=== PATIENT | female | born 1990 | race Caucasian/White ===

== ENCOUNTER 2025-01-30 04:38 | Emergency (ER) | payer OTHER, SELFPAY ==
[2025-01-30 04:41] VITALS: BP 107/79; PULSE 77; RESP 18; TEMP 36.7; O2SAT 100; BMI 20.2
[2025-01-30 05:01] LABS: Hematocrit 37.4 % (37-47); Hemoglobin 12.5 g/dL (12.0-15.0); Immature Granulocytes Count 0.020 X10^3/uL (0.0-0.0); Mean Corp Hgb Conc 33.4 g/dL (32-36); Mean Corpuscular Volume 94.4 fL (81-99); Mean Platelet Vol. 11.0 fl (6.2-12.0); NRBC Flagged by Analyzer 0 % (0-5); Platelet Count 216 K/mm3 (150-450); RBC Distribution Width CV 11.6 % (11.6-14.6); RBC Distribution Width SD 40.4 fl (35.1-43.9); Red Blood Count 3.96 M/mm3 (4.2-5.4); White Blood Count 7.7 K/mm3 (4.4-11.0)
[2025-01-30 05:03] LABS: Red Blood Cells-Urine 0 SEEN /hpf (0-5)
[2025-01-30 05:09] LABS: Color, Urine Yellow (Yellow); Glucose, Dipstick Normal (Normal); Ketone-Dipstick Negative (Negative); Leukocyte Esterase-Dipstick Negative /ul (Negative); Nitrite-Dipstick Negative (Negative); Occult Blood-Urine Negative /ul (Negative); Protein-Dipstick 15 mg/dl (Negative); Specific Gravity, Urine 1.025 (1.002-1.030); Urine Bilirubin Dipstick Negative (Negative)
--- NOTE | 2025-01-30 05:09 | EDS_ITS ---
HPI HPI - GI History of Present Illness Chief Complaint: Abd Pain Informant: patient, spouse/S.O. and EMS Narrative Narrative: Patient complaining of severe abdominal pain that started this past evening, more upper than lower, wrapping around to her back, without any nausea, vomiting, diarrhea, urinary symptoms, chest discomfort, or other acute symptoms. She states it improved but then it came back in the middle of the night more severe, she states it was very bad. Initially felt like cramping. They called 911 because they did not know what else to do, paulie gave her Toradol on the way here and she states the symptoms are completely resolved now. She has never had this before, at least nothing this bad. No history of any abdominal surgeries. PFSH PFSH Medical History no medical history no medical history Home Medications ?Medication ?Instructions ?Recorded ?Last Taken ?Type NK 01/30/25 Unknown History Allergy/AdvReac Type Severity Reaction Status Date / Time acetaminophen (From Tylenol) AdvReac Other Verified 01/30/25 04:41 ibuprofen AdvReac Other Verified 01/30/25 04:41 Family History no significant family his Surgical History no surgical history no surgical history Social History (Updated 01/30/25 @ 05:[address] Maksim Sargent MD) Smoking Status: Never smoker alcohol intake: never ROS ROS ED Constitutional Constitutional ED: Denies chills or fever(s) Eyes Eyes: Denies change in vision or diplopia ENT ENT ED: Denies rhinorrhea or sore throat Cardiovascular Cardiovascular: Denies chest pain or palpitations Respiratory/Chest Respiratory/Chest: Denies cough or dyspnea Gastrointestinal Gastrointestinal: Reports abdominal pain; Denies diarrhea, nausea or vomiting Genitourinary Genitourinary ED: Denies dysuria or hematuria Musculoskeletal Musculoskeletal: Denies back pain or neck pain Integumentary Denies abscess or rash Neurologic Neurologic: Denies headache(s), paresthesias or weakness Psychiatric Psychiatric: Denies anxiety or suicidal thoughts EXAM Physical Exam Const Vital Signs: 01/30/25 04:41 01/30/25 06:00 Temperature 98.0 F Temperature Source Oral Pulse Rate 77 74 Respiratory Rate 18 18 Blood Pressure 107/79 109/59 L Blood Pressure Mean 88 75 Pulse Ox 100 100 Oxygen Delivery Method Room Air Room Air Positive well nourished and well developed General Appearance ED: well developed and NAD HEENT Reports moist mucous membranes normocephalic and atraumatic Eyes PERRL and EOMs intact bilaterally Neck full ROM and supple Resp normal respiratory effort and clear to auscultation bilaterally Cardio regular rate, regular rhythm and no murmurs GI non-tender and non-distended Auscultation: normoactive bowel sounds Palpation: soft Back/Spine no CVA tenderness General Back: other FROM Extremity normal to inspection General Extremety ED: Negative for edema, pulses abnormal or tenderness General Extremity: Negative for edema or pulses abnormal Neuro oriented x3, CN's II-XII intact bilaterally and no sensory deficits noted Sensorium / Orientation: awake and alert Motor Exam: strength 5/5 throughout Skin no rashes or lesions noted and no wounds MDM MDM MDM Narrative Medical decision making narrative: Patient is asymptomatic with normal vital signs and I am not able to reproduce any abdominal discomfort with deep palpation/exam which is very benign. Her lungs are clear and her pulse ox is at 100% on room air and she has no symptoms of pneumonia. I did a quick bedside sonogram since the patient presents during my shift when hospital ultrasound department is not open, and ultrasound of the gallbladder. I see no stones, her gallbladder is distended with a grossly normal wall, and palpating directly over the gallbladder yields no pain or tenderness. I also viewed the right kidney which is also nontender and there is no hydronephrosis on ultrasound. I ran labs. negative ruling out ectopic. Blood counts normal, lipase negative ruling out acute pancreatitis, urinalysis shows no blood or signs of infection ruling out for the most part stones and pyelonephritis, but my concern is that this was biliary colic because her pain was in a bandlike distribution in her upper abdomen and she was really in severe pain before coming here. Her total bilirubin is slightly abnormal, her other liver enzymes are normal. I do not have any prior labs on her to compare. My concern is that I am not able to rule out possibility of a biliary obstruction. Ultrasound not available right now some sending her for a CT with IV contrast. I reevaluated her and she is having some mild upper abdominal cramping but not in severe pain and declines other analgesics at this time; the pain improved rather than worsened on reexamination later. I reviewed her CT scan imaging as well as the result which I agree with, it is showing possibly some mild periportal edema which is nonspecific, but no obvious other acute pathology or colitis or anything else in the lower abdomen. I discussed with Dr. Chang with GI, he advises now that the patient has been here for couple hours and it is Thursday morning and ultrasound is available to go forward with an ultrasound for further evaluation. Certainly Gilbert's syndrome and nonbiliary related pain is in the differential but we have no old values on her. I discussed all this with the patient and her , she is doing well right now, we will continue to monitor her and get ultrasound, checked out to oncoming ED physician at shift change. Lab Data Attestation: I reviewed the patient's lab results. Labs: Laboratory Results - last 24 hr 01/30/25 01/30/25 04:52 04:59 WBC 7.7 RBC 3.96 L Hgb 12.5 Hct 37.4 MCV 94.4 MCH 31.6 MCHC 33.4 RDW Std Deviation 40.4 RDW Coeff of Zenaida 11.6 Plt Count 216 MPV 11.0 Immature Gran % (Auto) 0.300 Neut % (Auto) 41.0 L Lymph % (Auto) 46.9 H [place] % (Auto) 9.4 Eos % (Auto) 1.7 Baso % (Auto) 0.7 Absolute Neuts (auto) 3.2 Absolute Lymphs (auto) 3.60 Nucleated RBC % 0 Sodium 139 Potassium 3.5 Chloride 102 Carbon Dioxide 26.7 Anion Gap 11 BUN 17 Creatinine 0.62 L Estim Creat Clear Calc 109.31 Est GFR (MDRD) Non-Af 118 BUN/Creatinine Ratio 27.9 H Glucose 154 H Calcium 9.2 Total Bilirubin 1.39 H AST 25 ALT 16 Alkaline Phosphatase 46 Total Protein 7.0 Albumin 4.3 Globulin 2.7 Albumin/Globulin Ratio 1.6 Lipase 35 Serum , Qual NEGATIVE Urine Color Yellow Urine Clarity Clear Urine pH 6.0 Ur Specific [place] 1.025 Urine Protein 15 H Urine Glucose (UA) Normal Urine Ketones Negative Urine Occult Blood Negative Urine Nitrite Negative Urine Bilirubin Negative Urine Urobilinogen Normal Ur Leukocyte Esterase Negative Urine RBC 0 SEEN Urine WBC 0-5 SEEN Ur Squamous Epith Cells 0-5 SEEN Ur Transition Epith Cell 0-5 SEEN Amorphous Sediment 1+ Urine Bacteria 2+ Urine Mucus 2+ Radiography Diagnostic Testing: Clinical Impression(s) from Imaging Studies Abdomen/Pelvis CT 01/30/25 05:37 IMPRESSION: Decreased density in the periportal region is noted, which can indicate periportal edema. The differential includes acute hepatitis, CHF, and secondary congestion. Reading Location: [facility] Management Discussion w/another healthcare provider: Online Content Coordinator (JEIMY Chang) Discharge Plan Triage Chief Complaint: Abd Pain ED Provider: Maksim Sargent Dx/Rx/DC Orders Clinical Impression: Acute upper abdominal pain Prescriptions: No Action NK Primary Care Provider: DULCE CHAN Referrals: Care Physician,No Primary [Non-Staff] - Print Language: [place]
[2025-01-30 05:15] LABS: Squamous Epithelial Cells - UA 0-5 SEEN /hpf (5-10); Transitional Epithelial - Ur 0-5 SEEN /hpf (0-5)
[2025-01-30 05:16] LABS: Mucous, Urine 2+ /hpf (<or=2+)
[2025-01-30 05:16] LABS: Internal QC Validated? YES +Cl - CLEAR BKGD; Pregnancy, Serum, hCG Quali. NEGATIVE Negative; Record Kit Lot#, Serum Preg. 0000962302
--- OUTSIDE RECORDS SUMMARY | 2025-01-30 05:24 | XMS RPT_ITS | CCD ---
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 Name Role Phone FANY DEE, DR MEHDI Garcia Primary Care Physician Allergies Allergy Classification Reported Allergen(s) Allergy Type Date of Onset Reaction(s) Facility (2 sources) Neomycin; Translations: [neomycin topical] Drug Allergy [facility] Medications Current Medications Medication Drug Class(es) Dates Sig (Normalized) Sig (Original) ibuprofen 600 mg oral tablet (2 sources) Nonsteroidal Anti-inflammatory Drug Start: 11-28-2017 Motrin Dose : 600 mg = 1 tab(s), Oral, q6h, PRN uterine cramping, 0 Refill(s) Start Date: 11/28/17 Status: Ordered 1 (2 sources) Start: 10-05-2014 take 1 capsule by mouth once daily 1 Dose = 1 cap(s), Oral, qDay, 0 Refill(s) Start Date: 10/05/14 Status: Ordered Problems Problem Classification Problem Date Documented Date Episodic/Chronic Diabetes or abnormal glucose tolerance complicating ; childbirth; or the puerperium (3 sources) Gestational diabetes mellitus complicating ; Translations: [Gestational diabetes mellitus in , insulin controlled] Onset: 05-09-2021 Episodic Other diseases of veins and lymphatics (1 source) Vulval varices; Translations: [Vulval varices] Onset: 05-09-2021 Episodic Other and delivery including normal (1 source) Delivery normal; Translations: [Encounter for full-term uncomplicated delivery] Onset: 05-10-2021 Episodic Unclassified (2 sources) Breast feeding () (observable entity) 06-19-2016 Comment on above: System added from do cumentation. Breast feeding Status documented as Yes on Admission Unclassified (2 sources) None (qualifier value) 12-31-2013 Unclassified (2 sources) 10-05-2014 Varicose veins of lower extremity (1 source) Varicose veins of lower extremity; Translations: [Asymptomatic varicose veins of bilateral lower extremities] Onset: 05-09-2021 Episodic Results Test Name Value Interpretation Reference Range Facility [facility] 05-10-2021 Hematocrit (Bld) [Volume fraction] 32.6 % Low 37.0-47.0 [facility] ([place]) Comment on above: Performed By: #### C BC, ADIFF, ANEU, HBSAG, TSH, FT4, HIV, PABOGEL, PABSGEL, RUBIS, RPR, VARIS #### [place] [address] Hgb 11.3 G/dL Low 12.0-16.0 [facility] ([place]) Comment on above: Performed By: #### C BC, ADIFF, ANEU, HBSAG, TSH, FT4, HIV, PABOGEL, PABSGEL, RUBIS, RPR, VARIS #### [place] [address] LABORATORYOrdered By: Galina Rodriguez on 05-10-2021 Hematocrit (Bld) [Volume fraction] 32.6 % Invalid Interpretation Code 37.0 - 47.0 % AO Auto Heme SS Hemoglobin (Bld) [Mass/Vol] 11.3 G/dL Invalid Interpretation Code 12.0 - 16.0 G/dL AO Auto Heme SS .Auto Diffon 05-09-2021 Basophil, Absolute 0.00 10 3/mcL Normal 0.00-0.19 Count includes the [facility] ([place]) Comment on above: Performed By: #### C BC, ADIFF, ANEU, HBSAG, TSH, FT4, HIV, PABOGEL, PABSGEL, RUBIS, RPR, VARIS #### [place] [id number] Basophils/100 WBC (Bld) 0.4 % Normal 0.0-2.5 [facility] ([place]) Comment on above: Performed By: #### C BC, ADIFF, ANEU, HBSAG, TSH, FT4, HIV, PABOGEL, PABSGEL, RUBIS, RPR, VARIS #### [address] [address] Eosinophil, Absolute 0.00 10 3/mcL Normal 0.00-0.40 [facility] ([place]) Comment on above: Performed By: #### C BC, ADIFF, ANEU, HBSAG, TSH, FT4, HIV, PABOGEL, PABSGEL, RUBIS, RPR, VARIS #### [address] [address] Eosinophils/100 WBC (Bld) 0.5 % Normal 0.0-7.0 [facility] ([place]) Comment on above: Performed By: #### C BC, ADIFF, ANEU, HBSAG, TSH, FT4, HIV, PABOGEL, PABSGEL, RUBIS, RPR, VARIS #### [address] [address] Lymphocyte, Absolute 1.00 10 3/mcL Normal 0.77-3.85 [facility] ([place]) Comment on above: Performed By: #### C BC, ADIFF, ANEU, HBSAG, TSH, FT4, HIV, PABOGEL, PABSGEL, RUBIS, RPR, VARIS #### [address] [address] Lymphocytes/100 WBC (Bld) 19.4 % Normal 10.0-50.0 [facility] ([place]) Comment on above: Performed By: #### C BC, ADIFF, ANEU, HBSAG, TSH, FT4, HIV, PABOGEL, PABSGEL, RUBIS, RPR, VARIS #### [address] [address] Monocyte, Absolute 0.50 10 3/mcL Normal 0.15-1.00 Count includes the [facility] ([place]) Comment on above: Performed By: #### C BC, ADIFF, ANEU, HBSAG, TSH, FT4, HIV, PABOGEL, PABSGEL, RUBIS, RPR, VARIS #### [address] [address] Monocytes/100 WBC (Bld) 8.9 % Normal 1.7-13.0 [facility] ([place]) Comment on above: Performed By: #### C BC, ADIFF, ANEU, HBSAG, TSH, FT4, HIV, PABOGEL, PABSGEL, RUBIS, RPR, VARIS #### [address] [address] Neutrophils/100 WBC (Bld) 70.8 % Normal 37.0-80.0 [facility] ([place]) Comment on above: Performed By: #### C BC, ADIFF, ANEU, HBSAG, TSH, FT4, HIV, PABOGEL, PABSGEL, RUBIS, RPR, VARIS #### [address] [address] .NEUABSon 05-09-2021 Neutrophil, Absolute 3.60 10 3/mcL Normal 2.85-6.16 [facility] ([place]) Comment on above: Performed By: #### C BC, ADIFF, ANEU, HBSAG, TSH, FT4, HIV, PABOGEL, PABSGEL, RUBIS, RPR, VARIS #### [place] [id number] CBCon 05-09-2021 Erythrocyte distribution width (RBC) [Ratio] 13.1 % Normal 11.5-14.5 [facility] ([place]) Comment on above: Performed By: #### C BC, ADIFF, ANEU, HBSAG, TSH, FT4, HIV, PABOGEL, PABSGEL, RUBIS, RPR, VARIS #### [place] [id number] Hematocrit (Bld) [Volume fraction] 34.5 % Low 37.0-47.0 [facility] ([place]) Comment on above: Performed By: #### C BC, ADIFF, ANEU, HBSAG, TSH, FT4, HIV, PABOGEL, PABSGEL, RUBIS, RPR, VARIS #### [place] [id number] Hgb 11.9 G/dL Low 12.0-16.0 [facility] ([place]) Comment on above: Performed By: #### C BC, ADIFF, ANEU, HBSAG, TSH, FT4, HIV, PABOGEL, PABSGEL, RUBIS, RPR, VARIS #### [address] [address] MCH (RBC) [Entitic mass] 34.3 pg High 27.0-31.2 [facility] ([place]) Comment on above: Performed By: #### C BC, ADIFF, ANEU, HBSAG, TSH, FT4, HIV, PABOGEL, PABSGEL, RUBIS, RPR, VARIS #### [place] [address] MCHC 34.6 G/dL Normal 33.0-37.0 [facility] ([place]) Comment on above: Performed By: #### C BC, ADIFF, ANEU, HBSAG, TSH, FT4, HIV, PABOGEL, PABSGEL, RUBIS, RPR, VARIS #### [place] [address] MCV (RBC) [Entitic vol] 99.0 fL High 80.0-94.0 [facility] ([place]) Comment on above: Performed By: #### C BC, ADIFF, ANEU, HBSAG, TSH, FT4, HIV, PABOGEL, PABSGEL, RUBIS, RPR, VARIS #### [place] [address] Platelet 144 10 3/mcL Normal 130-400 [facility] ([place]) Comment on above: Performed By: #### C BC, ADIFF, ANEU, HBSAG, TSH, FT4, HIV, PABOGEL, PABSGEL, RUBIS, RPR, VARIS #### [place] [address] Platelet mean volume (Bld) [Entitic vol] 9.5 fL Normal 7.4-10.4 [facility] ([place]) Comment on above: Performed By: #### C BC, ADIFF, ANEU, HBSAG, TSH, FT4, HIV, PABOGEL, PABSGEL, RUBIS, RPR, VARIS #### [place] [address] RBC 3.48 10 6/mcL Low 4.20-5.40 [facility] ([place]) Comment on above: Performed By: #### C BC, ADIFF, ANEU, HBSAG, TSH, FT4, HIV, PABOGEL, PABSGEL, RUBIS, RPR, VARIS #### [address] [address] WBC 5.00 10 3/mcL Normal 4.60-10.80 [facility] ([place]) Comment on above: Performed By: #### C BC, ADIFF, ANEU, HBSAG, TSH, FT4, HIV, PABOGEL, PABSGEL, RUBIS, RPR, VARIS #### [address] [address] Gel ABOon 05-09-2021 ABO/Rh Interp Positive Invalid Interpretation Code [facility] ([place]) Comment on above: Performed By: #### C BC, ADIFF, ANEU, HBSAG, TSH, FT4, HIV, PABOGEL, PABSGEL, RUBIS, RPR, VARIS #### [place] [id number] Gel ABSon 05-09-2021 Antibody Screen Gel Negative Normal [facility] ([place]) Comment on above: Performed By: #### C BC, ADIFF, ANEU, HBSAG, TSH, FT4, HIV, PABOGEL, PABSGEL, RUBIS, RPR, VARIS #### [address] [address] LABORATORYOrdered By: Estefanía Aj on 05-09-2021 ABO/Rh Interp Positive Invalid Interpretation Code AO BB SS Antibody Screen Gel Negative [facility]SC (05/09/21 7:20 AM) Invalid Interpretation Code AO BB SS Basophil, Absolute 0.00 103/mcL Invalid Interpretation Code 0.00 - 0.19 10^3/mcL AO Auto Heme SS Basophils/100 WBC (Bld) 0.4 % Invalid Interpretation Code 0.0 - 2.5 % AO Auto Heme SS Eosinophil, Absolute 0.00 103/mcL Invalid Interpretation Code 0.00 - 0.40 10^3/mcL AO Auto Heme SS Eosinophils/100 WBC (Bld) 0.5 % Invalid Interpretation Code 0.0 - 7.0 % AO Auto Heme SS Erythrocyte distribution width (RBC) [Ratio] 13.1 % Invalid Interpretation Code 11.5 - 14.5 % AO Auto Heme SS Hematocrit (Bld) [Volume fraction] 34.5 % Invalid Interpretation Code 37.0 - 47.0 % AO Auto Heme SS Hemoglobin (Bld) [Mass/Vol] 11.9 G/dL Invalid Interpretation Code 12.0 - 16.0 G/dL AO Auto Heme SS Lymphocyte, Absolute 1.00 103/mcL Invalid Interpretation Code 0.77 - 3.85 10^3/mcL AO Auto Heme SS Lymphocytes/100 WBC (Bld) 19.4 % Invalid Interpretation Code 10.0 - 50.0 % AO Auto Heme SS MCH (RBC) [Entitic mass] 34.3 pg Invalid Interpretation Code 27.0 - 31.2 pg AO Auto Heme SS MCHC (RBC) [Mass/Vol] 34.6 G/dL Invalid Interpretation Code 33.0 - 37.0 G/dL AO Auto Heme SS MCV (RBC) [Entitic vol] 99.0 fL Invalid Interpretation Code 80.0 - 94.0 fL AO Auto Heme SS Monocyte, Absolute 0.50 103/mcL Invalid Interpretation Code 0.15 - 1.00 10^3/mcL AO Auto Heme SS Monocytes/100 WBC (Bld) 8.9 % Invalid Interpretation Code 1.7 - 13.0 % AO Auto Heme SS Neutrophil, Absolute 3.60 103/mcL Invalid Interpretation Code 2.85 - 6.16 10^3/mcL AO Auto Heme SS Neutrophils/100 WBC (Bld) 70.8 % Invalid Interpretation Code 37.0 - 80.0 % AO Auto Heme SS Platelet mean volume (Bld) [Entitic vol] 9.5 fL Invalid Interpretation Code 7.4 - 10.4 fL AO Auto Heme SS Platelets (Bld) [#/Vol] 144 103/mcL Invalid Interpretation Code 130 - 400 10^3/mcL AO Auto Heme SS RBC (Bld) [#/Vol] 3.48 106/mcL Invalid Interpretation Code 4.20 - 5.40 10^6/mcL AO Auto Heme SS WBC (Bld) [#/Vol] 5.00 103/mcL Invalid Interpretation Code 4.60 - 10.80 10^3/mcL AO Auto Heme SS .Auto Diffon 04-11-2021 Basophil, Absolute 0.00 10 3/mcL Normal 0.00-0.27 [facility] ([place]) Comment on above: Performed By: #### C BC, ADIFF, ANEU, HBSAG, TSH, FT4, HIV, PABOGEL, PABSGEL, RUBIS, RPR, VARIS #### [address] [address] Basophils/100 WBC (Bld) 0.6 % Normal 0.0-2.5 [facility] ([place]) Comment on above: Performed By: #### C BC, ADIFF, ANEU, HBSAG, TSH, FT4, HIV, PABOGEL, PABSGEL, RUBIS, RPR, VARIS #### [address] [address] Eosinophil, Absolute 0.10 10 3/mcL Normal 0.00-0.65 [facility] ([place]) Comment on above: Performed By: #### C BC, ADIFF, ANEU, HBSAG, TSH, FT4, HIV, PABOGEL, PABSGEL, RUBIS, RPR, VARIS #### [address] [address] Eosinophils/100 WBC (Bld) 1.4 % Normal 0.0-6.0 [facility] ([place]) Comment on above: Performed By: #### C BC, ADIFF, ANEU, HBSAG, TSH, FT4, HIV, PABOGEL, PABSGEL, RUBIS, RPR, VARIS #### [address] [address] Lymphocyte, Absolute 1.00 10 3/mcL Normal 0.90-4.32 [facility] ([place]) Comment on above: Performed By: #### C BC, ADIFF, ANEU, HBSAG, TSH, FT4, HIV, PABOGEL, PABSGEL, RUBIS, RPR, VARIS #### [address] [address] Lymphocytes/100 WBC (Bld) 19.4 % Low 20.0-40.0 [facility] ([place]) Comment on above: Performed By: #### C BC, ADIFF, ANEU, HBSAG, TSH, FT4, HIV, PABOGEL, PABSGEL, RUBIS, RPR, VARIS #### [address] [address] Monocyte, Absolute 0.50 10 3/mcL Normal 0.09-1.40 Count includes the [facility] ([place]) Comment on above: Performed By: #### C BC, ADIFF, ANEU, HBSAG, TSH, FT4, HIV, PABOGEL, PABSGEL, RUBIS, RPR, VARIS #### [address] [address] Monocytes/100 WBC (Bld) 9.6 % Normal 2.0-13.0 [facility] ([place]) Comment on above: Performed By: #### C BC, ADIFF, ANEU, HBSAG, TSH, FT4, HIV, PABOGEL, PABSGEL, RUBIS, RPR, VARIS #### [address] [address] Neutrophils/100 WBC (Bld) 69.0 % Normal 50.0-75.0 [facility] ([place]) Comment on above: Performed By: #### C BC, ADIFF, ANEU, HBSAG, TSH, FT4, HIV, PABOGEL, PABSGEL, RUBIS, RPR, VARIS #### [address] [address] .NEUABSon 04-11-2021 Neutrophil, Absolute 3.40 10 3/mcL Normal 2.25-8.10 [facility] ([place]) Comment on above: Performed By: #### C BC, ADIFF, ANEU, HBSAG, TSH, FT4, HIV, PABOGEL, PABSGEL, RUBIS, RPR, VARIS #### [address] [address] CBCon 04-11-2021 Erythrocyte distribution width (RBC) [Ratio] 12.9 % Normal 11.5-15.5 [facility] ([place]) Comment on above: Performed By: #### C BC, ADIFF, ANEU, HBSAG, TSH, FT4, HIV, PABOGEL, PABSGEL, RUBIS, RPR, VARIS #### [address] [address] Hematocrit (Bld) [Volume fraction] 32.9 % Low 34.0-46.0 [facility] ([place]) Comment on above: Performed By: #### C BC, ADIFF, ANEU, HBSAG, TSH, FT4, HIV, PABOGEL, PABSGEL, RUBIS, RPR, VARIS #### [place] [id number] Hgb 11.1 G/dL Low 12.0-16.0 [facility] ([place]) Comment on above: Performed By: #### C BC, ADIFF, ANEU, HBSAG, TSH, FT4, HIV, PABOGEL, PABSGEL, RUBIS, RPR, VARIS #### [place] [address] MCH (RBC) [Entitic mass] 33.6 pg High 27.0-33.0 [facility] ([place]) Comment on above: Performed By: #### C BC, ADIFF, ANEU, HBSAG, TSH, FT4, HIV, PABOGEL, PABSGEL, RUBIS, RPR, VARIS #### [place] [id number] MCHC 33.6 G/dL Normal 32.0-36.0 [facility] ([place]) Comment on above: Performed By: #### C BC, ADIFF, ANEU, HBSAG, TSH, FT4, HIV, PABOGEL, PABSGEL, RUBIS, RPR, VARIS #### [place] [address] MCV (RBC) [Entitic vol] 100.1 fL High 80.0-99.0 [facility] ([place]) Comment on above: Performed By: #### C BC, ADIFF, ANEU, HBSAG, TSH, FT4, HIV, PABOGEL, PABSGEL, RUBIS, RPR, VARIS #### [place] [id number] Platelet 149 10 3/mcL Low 150-450 [facility] ([place]) Comment on above: Performed By: #### C BC, ADIFF, ANEU, HBSAG, TSH, FT4, HIV, PABOGEL, PABSGEL, RUBIS, RPR, VARIS #### [place] [id number] Platelet mean volume (Bld) [Entitic vol] 10.4 fL Normal 6.6-10.5 [facility] ([place]) Comment on above: Performed By: #### C BC, ADIFF, ANEU, HBSAG, TSH, FT4, HIV, PABOGEL, PABSGEL, RUBIS, RPR, VARIS #### [place] [id number] RBC 3.29 10 6/mcL Low 4.10-5.30 [facility] ([place]) Comment on above: Performed By: #### C BC, ADIFF, ANEU, HBSAG, TSH, FT4, HIV, PABOGEL, PABSGEL, RUBIS, RPR, VARIS #### [place] [id number] WBC 5.00 10 3/mcL Normal 4.50-10.80 [facility] ([place]) Comment on above: Performed By: #### C BC, ADIFF, ANEU, HBSAG, TSH, FT4, HIV, PABOGEL, PABSGEL, RUBIS, RPR, VARIS #### [address] [address] GL1on 03-05-2021 Glucose [Mass/Vol] 193 mg/dL High 70-139 [facility] ([place]) Comment on above: Performed By: #### C BC, ADIFF, ANEU, HBSAG, TSH, FT4, HIV, PABOGEL, PABSGEL, RUBIS, RPR, VARIS #### [place] [id number] GL2on 03-05-2021 Glucose [Mass/Vol] 200 mg/dL Normal [facility] ([place]) Comment on above: Performed By: #### C BC, ADIFF, ANEU, HBSAG, TSH, FT4, HIV, PABOGEL, PABSGEL, RUBIS, RPR, VARIS #### [address] [address] GL3on 03-05-2021 Glucose [Mass/Vol] 170 mg/dL Normal [facility] ([place]) Comment on above: Performed By: #### C BC, ADIFF, ANEU, HBSAG, TSH, FT4, HIV, PABOGEL, PABSGEL, RUBIS, RPR, VARIS #### [address] [address] GLFon 03-05-2021 Glucose [Mass/Vol] 74 mg/dL Normal 70-110 [facility] ([place]) Comment on above: Performed By: #### C BC, ADIFF, ANEU, HBSAG, TSH, FT4, HIV, PABOGEL, PABSGEL, RUBIS, RPR, VARIS #### [place] [address] .Auto Diffon 02-26-2021 Basophil, Absolute 0.00 10 3/mcL Normal 0.00-0.27 Count includes the [facility] ([place]) Comment on above: Performed By: #### C BC, ADIFF, ANEU, HBSAG, TSH, FT4, HIV, PABOGEL, PABSGEL, RUBIS, RPR, VARIS #### [place] [address] Basophils/100 WBC (Bld) 0.2 % Normal 0.0-2.5 [facility] ([place]) Comment on above: Performed By: #### C BC, ADIFF, ANEU, HBSAG, TSH, FT4, HIV, PABOGEL, PABSGEL, RUBIS, RPR, VARIS #### [place] [address] Eosinophil, Absolute 0.00 10 3/mcL Normal 0.00-0.65 [facility] ([place]) Comment on above: Performed By: #### C BC, ADIFF, ANEU, HBSAG, TSH, FT4, HIV, PABOGEL, PABSGEL, RUBIS, RPR, VARIS #### [address] [address] Eosinophils/100 WBC (Bld) 0.7 % Normal 0.0-6.0 [facility] ([place]) Comment on above: Performed By: #### C BC, ADIFF, ANEU, HBSAG, TSH, FT4, HIV, PABOGEL, PABSGEL, RUBIS, RPR, VARIS #### [facility] [address] [place], [place] [address] Lymphocyte, Absolute 1.10 10 3/mcL Normal 0.90-4.32 [facility] ([place]) Comment on above: Performed By: #### C BC, ADIFF, ANEU, HBSAG, TSH, FT4, HIV, PABOGEL, PABSGEL, RUBIS, RPR, VARIS #### [address] [address] Lymphocytes/100 WBC (Bld) 15.2 % Low 20.0-40.0 [facility] ([place]) Comment on above: Performed By: #### C BC, ADIFF, ANEU, HBSAG, TSH, FT4, HIV, PABOGEL, PABSGEL, RUBIS, RPR, VARIS #### [address] [address] Monocyte, Absolute 0.40 10 3/mcL Normal 0.09-1.40 Count includes the [facility] ([place]) Comment on above: Performed By: #### C BC, ADIFF, ANEU, HBSAG, TSH, FT4, HIV, PABOGEL, PABSGEL, RUBIS, RPR, VARIS #### [address] [address] Monocytes/100 WBC (Bld) 6.0 % Normal 2.0-13.0 [facility] ([place]) Comment on above: Performed By: #### C BC, ADIFF, ANEU, HBSAG, TSH, FT4, HIV, PABOGEL, PABSGEL, RUBIS, RPR, VARIS #### [address] [address] Neutrophils/100 WBC (Bld) 77.9 % High 50.0-75.0 [facility] ([place]) Comment on above: Performed By: #### C BC, ADIFF, ANEU, HBSAG, TSH, FT4, HIV, PABOGEL, PABSGEL, RUBIS, RPR, VARIS #### [address] [address] .NEUABSon 02-26-2021 Neutrophil, Absolute 5.40 10 3/mcL Normal 2.25-8.10 [facility] ([place]) Comment on above: Performed By: #### C BC, ADIFF, ANEU, HBSAG, TSH, FT4, HIV, PABOGEL, PABSGEL, RUBIS, RPR, VARIS #### [place] [id number] CBCon 02-26-2021 Erythrocyte distribution width (RBC) [Ratio] 13.1 % Normal 11.5-15.5 [facility] ([place]) Comment on above: Performed By: #### C BC, ADIFF, ANEU, HBSAG, TSH, FT4, HIV, PABOGEL, PABSGEL, RUBIS, RPR, VARIS #### [place] [address] Hematocrit (Bld) [Volume fraction] 31.6 % Low 34.0-46.0 [facility] ([place]) Comment on above: Performed By: #### C BC, ADIFF, ANEU, HBSAG, TSH, FT4, HIV, PABOGEL, PABSGEL, RUBIS, RPR, VARIS #### [place] [address] Hgb 11.0 G/dL Low 12.0-16.0 [facility] ([place]) Comment on above: Performed By: #### C BC, ADIFF, ANEU, HBSAG, TSH, FT4, HIV, PABOGEL, PABSGEL, RUBIS, RPR, VARIS #### [place] [address] MCH (RBC) [Entitic mass] 34.2 pg High 27.0-33.0 [facility] ([place]) Comment on above: Performed By: #### C BC, ADIFF, ANEU, HBSAG, TSH, FT4, HIV, PABOGEL, PABSGEL, RUBIS, RPR, VARIS #### [place] [address] MCHC 34.9 G/dL Normal 32.0-36.0 [facility] ([place]) Comment on above: Performed By: #### C BC, ADIFF, ANEU, HBSAG, TSH, FT4, HIV, PABOGEL, PABSGEL, RUBIS, RPR, VARIS #### [facility] [address] [place], [place] [address] MCV (RBC) [Entitic vol] 97.8 fL Normal 80.0-99.0 [facility] ([place]) Comment on above: Performed By: #### C BC, ADIFF, ANEU, HBSAG, TSH, FT4, HIV, PABOGEL, PABSGEL, RUBIS, RPR, VARIS #### [place] [id number] Platelet 178 10 3/mcL Normal 150-450 [facility] ([place]) Comment on above: Performed By: #### C BC, ADIFF, ANEU, HBSAG, TSH, FT4, HIV, PABOGEL, PABSGEL, RUBIS, RPR, VARIS #### [place] [id number] Platelet mean volume (Bld) [Entitic vol] 9.7 fL Normal 6.6-10.5 [facility] ([place]) Comment on above: Performed By: #### C BC, ADIFF, ANEU, HBSAG, TSH, FT4, HIV, PABOGEL, PABSGEL, RUBIS, RPR, VARIS #### [address] [address] RBC 3.23 10 6/mcL Low 4.10-5.30 [facility] ([place]) Comment on above: Performed By: #### C BC, ADIFF, ANEU, HBSAG, TSH, FT4, HIV, PABOGEL, PABSGEL, RUBIS, RPR, VARIS #### [place] [id number] WBC 6.90 10 3/mcL Normal 4.50-10.80 [facility] ([place]) Comment on above: Performed By: #### C BC, ADIFF, ANEU, HBSAG, TSH, FT4, HIV, PABOGEL, PABSGEL, RUBIS, RPR, VARIS #### [address] [address] [id number] 02-25-2021 Glucose [Mass/Vol] 169 mg/dL High 70-139 [facility] ([place]) Comment on above: Performed By: #### C BC, ADIFF, ANEU, HBSAG, TSH, FT4, HIV, PABOGEL, PABSGEL, RUBIS, RPR, VARIS #### [place] [id number] TSHon 02-25-2021 TSH 1.078 mIU/mL Normal 0.550-4.780 [facility] ([place]) Comment on above: Result Comment: No te - New Reference Range in effect 20 Performed By: #### C BC, ADIFF, ANEU, HBSAG, TSH, FT4, HIV, PABOGEL, PABSGEL, RUBIS, RPR, VARIS #### [place] [address] GL1on 11-22-2020 Glucose [Mass/Vol] 143 mg/dL High 70-139 [facility] ([place]) Comment on above: Performed By: #### C BC, ADIFF, ANEU, HBSAG, TSH, FT4, HIV, PABOGEL, PABSGEL, RUBIS, RPR, VARIS #### [place] [address] GL2on 11-22-2020 Glucose [Mass/Vol] 134 mg/dL Normal [facility] ([place]) Comment on above: Performed By: #### C BC, ADIFF, ANEU, HBSAG, TSH, FT4, HIV, PABOGEL, PABSGEL, RUBIS, RPR, VARIS #### [place] [address] GL3on 11-22-2020 Glucose [Mass/Vol] 107 mg/dL Normal [facility] ([place]) Comment on above: Performed By: #### C BC, ADIFF, ANEU, HBSAG, TSH, FT4, HIV, PABOGEL, PABSGEL, RUBIS, RPR, VARIS #### [place] [address] GLFon 11-22-2020 Glucose [Mass/Vol] 86 mg/dL Normal 70-110 [facility] ([place]) Comment on above: Performed By: #### C BC, ADIFF, ANEU, HBSAG, TSH, FT4, HIV, PABOGEL, PABSGEL, RUBIS, RPR, VARIS #### [place] [address] TSHon 11-14-2020 TSH 0.926 mIU/mL Normal 0.550-4.780 [facility] ([place]) Comment on above: Result Comment: No te - New Reference Range in effect 20 Performed By: #### C BC, ADIFF, ANEU, HBSAG, TSH, FT4, HIV, PABOGEL, PABSGEL, RUBIS, RPR, VARIS #### [place] [address] [id number] 11-13-2020 Glucose [Mass/Vol] 144 mg/dL High 70-139 [facility] ([place]) Comment on above: Performed By: #### C BC, ADIFF, ANEU, HBSAG, TSH, FT4, HIV, PABOGEL, PABSGEL, RUBIS, RPR, VARIS #### [place] [address] .Auto Diffon 11-12-2020 Basophil, Absolute 0.00 10 3/mcL Normal 0.00-0.27 Count includes the [facility] ([place]) Comment on above: Performed By: #### C BC, ADIFF, ANEU, HBSAG, TSH, FT4, HIV, PABOGEL, PABSGEL, RUBIS, RPR, VARIS #### [place] [address] Basophils/100 WBC (Bld) 0.4 % Normal 0.0-2.5 [facility] ([place]) Comment on above: Performed By: #### C BC, ADIFF, ANEU, HBSAG, TSH, FT4, HIV, PABOGEL, PABSGEL, RUBIS, RPR, VARIS #### [place] [address] Eosinophil, Absolute 0.10 10 3/mcL Normal 0.00-0.65 [facility] ([place]) Comment on above: Performed By: #### C BC, ADIFF, ANEU, HBSAG, TSH, FT4, HIV, PABOGEL, PABSGEL, RUBIS, RPR, VARIS #### [address] [address] Eosinophils/100 WBC (Bld) 1.2 % Normal 0.0-6.0 [facility] ([place]) Comment on above: Performed By: #### C BC, ADIFF, ANEU, HBSAG, TSH, FT4, HIV, PABOGEL, PABSGEL, RUBIS, RPR, VARIS #### [address] [address] Lymphocyte, Absolute 1.30 10 3/mcL Normal 0.90-4.32 [facility] ([place]) Comment on above: Performed By: #### C BC, ADIFF, ANEU, HBSAG, TSH, FT4, HIV, PABOGEL, PABSGEL, RUBIS, RPR, VARIS #### [address] [address] Lymphocytes/100 WBC (Bld) 19.8 % Low 20.0-40.0 [facility] ([place]) Comment on above: Performed By: #### C BC, ADIFF, ANEU, HBSAG, TSH, FT4, HIV, PABOGEL, PABSGEL, RUBIS, RPR, VARIS #### [address] [address] Monocyte, Absolute 0.50 10 3/mcL Normal 0.09-1.40 Count includes the [facility] ([place]) Comment on above: Performed By: #### C BC, ADIFF, ANEU, HBSAG, TSH, FT4, HIV, PABOGEL, PABSGEL, RUBIS, RPR, VARIS #### [address] [address] Monocytes/100 WBC (Bld) 7.5 % Normal 2.0-13.0 [facility] ([place]) Comment on above: Performed By: #### C BC, ADIFF, ANEU, HBSAG, TSH, FT4, HIV, PABOGEL, PABSGEL, RUBIS, RPR, VARIS #### [address] [address] Neutrophils/100 WBC (Bld) 71.1 % Normal 50.0-75.0 [facility] ([place]) Comment on above: Performed By: #### C BC, ADIFF, ANEU, HBSAG, TSH, FT4, HIV, PABOGEL, PABSGEL, RUBIS, RPR, VARIS #### [address] [address] .NEUABSon 11-12-2020 Neutrophil, Absolute 4.80 10 3/mcL Normal 2.25-8.10 [facility] ([place]) Comment on above: Performed By: #### C BC, ADIFF, ANEU, HBSAG, TSH, FT4, HIV, PABOGEL, PABSGEL, RUBIS, RPR, VARIS #### [place] [address] CBCon 11-12-2020 Erythrocyte distribution width (RBC) [Ratio] 12.7 % Normal 11.5-15.5 [facility] ([place]) Comment on above: Performed By: #### C BC, ADIFF, ANEU, HBSAG, TSH, FT4, HIV, PABOGEL, PABSGEL, RUBIS, RPR, VARIS #### [place] [address] Hematocrit (Bld) [Volume fraction] 33.3 % Low 34.0-46.0 [facility] ([place]) Comment on above: Performed By: #### C BC, ADIFF, ANEU, HBSAG, TSH, FT4, HIV, PABOGEL, PABSGEL, RUBIS, RPR, VARIS #### [place] [id number] Hgb 11.6 G/dL Low 12.0-16.0 [facility] ([place]) Comment on above: Performed By: #### C BC, ADIFF, ANEU, HBSAG, TSH, FT4, HIV, PABOGEL, PABSGEL, RUBIS, RPR, VARIS #### [place] [id number] MCH (RBC) [Entitic mass] 32.7 pg Normal 27.0-33.0 [facility] ([place]) Comment on above: Performed By: #### C BC, ADIFF, ANEU, HBSAG, TSH, FT4, HIV, PABOGEL, PABSGEL, RUBIS, RPR, VARIS #### [place] [address] MCHC 34.8 G/dL Normal 32.0-36.0 [facility] ([place]) Comment on above: Performed By: #### C BC, ADIFF, ANEU, HBSAG, TSH, FT4, HIV, PABOGEL, PABSGEL, RUBIS, RPR, VARIS #### [place] [address] MCV (RBC) [Entitic vol] 94.1 fL Normal 80.0-99.0 [facility] ([place]) Comment on above: Performed By: #### C BC, ADIFF, ANEU, HBSAG, TSH, FT4, HIV, PABOGEL, PABSGEL, RUBIS, RPR, VARIS #### [place] [address] Platelet 199 10 3/mcL Normal 150-450 [facility] ([place]) Comment on above: Performed By: #### C BC, ADIFF, ANEU, HBSAG, TSH, FT4, HIV, PABOGEL, PABSGEL, RUBIS, RPR, VARIS #### [place] [address] Platelet mean volume (Bld) [Entitic vol] 9.7 fL Normal 6.6-10.5 [facility] ([place]) Comment on above: Performed By: #### C BC, ADIFF, ANEU, HBSAG, TSH, FT4, HIV, PABOGEL, PABSGEL, RUBIS, RPR, VARIS #### [place] [address] RBC 3.55 10 6/mcL Low 4.10-5.30 [facility] ([place]) Comment on above: Performed By: #### C BC, ADIFF, ANEU, HBSAG, TSH, FT4, HIV, PABOGEL, PABSGEL, RUBIS, RPR, VARIS #### [place] [address] WBC 6.70 10 3/mcL Normal 4.50-10.80 [facility] ([place]) Comment on above: Performed By: #### C BC, ADIFF, ANEU, HBSAG, TSH, FT4, HIV, PABOGEL, PABSGEL, RUBIS, RPR, VARIS #### [place] [id number] VARISon 10-17-[address] Positive Normal [facility] ([place]) Comment on above: Result Comment: This immune status assay detects antibody to Varicella Zoster virus. Interpret results in conjunction with clinical history. Positive: Reactive for antibodies to Varicella IgG. If clinically indicated, order Varicella IGM to rule out recent infection. Equivocal: Equivocal for antibodies to Varicella IgG. Suggest repeat testing in 10-14 days. Negative: Non-reactive for antibodies to Varicella IgG. Performed By: #### C BC, ADIFF, ANEU, HBSAG, TSH, FT4, HIV, PABOGEL, PABSGEL, RUBIS, RPR, VARIS #### [place] [address] FT4on 10-16-2020 Free T4 1.00 mcg/dL Normal 0.89-1.76 [facility] ([place]) Comment on above: Result Comment: No te - New Reference Range in effect 20 Performed By: #### C BC, ADIFF, ANEU, HBSAG, TSH, FT4, HIV, PABOGEL, PABSGEL, RUBIS, RPR, VARIS #### [place] [address] HBSAGon 10-16-2020 Hep B Surf Ag Non-Reactive Normal Non-Reactive [facility] ([place]) Comment on above: Performed By: #### C BC, ADIFF, ANEU, HBSAG, TSH, FT4, HIV, PABOGEL, PABSGEL, RUBIS, RPR, VARIS #### [place] [address] HIVon 10-16-2020 HIV 1/2 Ab Normal Non-Reactive [facility] ([place]) Comment on above: Result Comment: Non- Reactive Specimen is negative for anti-HIV-1 and anti-HIV-2. Performed By: #### C BC, ADIFF, ANEU, HBSAG, TSH, FT4, HIV, PABOGEL, PABSGEL, RUBIS, RPR, VARIS #### [facility] [address] [place] [id number] PABO (Gel)on 10-16-2020 PABO/Rh Interp (Gel) Positive Invalid Interpretation Code [facility] ([place]) Comment on above: Performed By: #### C BC, ADIFF, ANEU, HBSAG, TSH, FT4, HIV, PABOGEL, PABSGEL, RUBIS, RPR, VARIS #### [address] [address] PABS (Gel)on 10-16-2020 PABS Interp (Gel) Negative Normal [facility] ([place]) Comment on above: Performed By: #### C BC, ADIFF, ANEU, HBSAG, TSH, FT4, HIV, PABOGEL, PABSGEL, RUBIS, RPR, VARIS #### [address] [address] RPRon 10-16-2020 Reagin Ab RPR Ql (S) Non-Reactive Normal Non-Reactive [facility] ([place]) Comment on above: Result Comment: The RPR test is a non-treponemal assay useful as an aid in the diagnosis of primary and secondary syphilis. It converts to positive generally within 2 weeks after the appearance of a lesion. This test is also useful for monitoring response to antibiotic therapy. A positive RPR screening test will be followed by the FTA ABS test. False positive RPR tests may occur in 1) patients with underlying autoimmune disorders, 2) elderly patients, 3) , and 4) other conditions with abnormal serum globulins. Performed By: #### C BC, ADIFF, ANEU, HBSAG, TSH, FT4, HIV, PABOGEL, PABSGEL, RUBIS, RPR, VARIS #### [facility] [address] [place] [address] RUBISon 10-16-[address] Positive Normal Positive [facility] ([place]) Comment on above: Result Comment: This immune status assay detects IgM and/or IgG antibody to Rubella. Interpret results in conjunction with clinical history. POS: Antibody detected; exposure at undetermined recent or distant time. If clinically indicated, order Rubella IGM to rule out recent infection. NEG: No antibody detected. Performed By: #### C BC, ADIFF, ANEU, HBSAG, TSH, FT4, HIV, PABOGEL, PABSGEL, RUBIS, RPR, VARIS #### [address] [address] TSHon 10-16-2020 TSH 0.413 mIU/mL Low 0.550-4.780 [facility] ([place]) Comment on above: Result Comment: No te - New Reference Range in effect 20 Performed By: #### C BC, ADIFF, ANEU, HBSAG, TSH, FT4, HIV, PABOGEL, PABSGEL, RUBIS, RPR, VARIS #### [address] [address] .Auto Diffon 10-15-2020 Basophil, Absolute 0.00 10 3/mcL Normal 0.00-0.27 Count includes the [facility] ([place]) Comment on above: Performed By: #### C BC, ADIFF, ANEU, HBSAG, TSH, FT4, HIV, PABOGEL, PABSGEL, RUBIS, RPR, VARIS #### [address] [address] Basophils/100 WBC (Bld) 0.3 % Normal 0.0-2.5 [facility] ([place]) Comment on above: Performed By: #### C BC, ADIFF, ANEU, HBSAG, TSH, FT4, HIV, PABOGEL, PABSGEL, RUBIS, RPR, VARIS #### [address] [address] Eosinophil, Absolute 0.00 10 3/mcL Normal 0.00-0.65 [facility] ([place]) Comment on above: Performed By: #### C BC, ADIFF, ANEU, HBSAG, TSH, FT4, HIV, PABOGEL, PABSGEL, RUBIS, RPR, VARIS #### [address] [address] Eosinophils/100 WBC (Bld) 0.5 % Normal 0.0-6.0 [facility] ([place]) Comment on above: Performed By: #### C BC, ADIFF, ANEU, HBSAG, TSH, FT4, HIV, PABOGEL, PABSGEL, RUBIS, RPR, VARIS #### [address] [address] Lymphocyte, Absolute 1.20 10 3/mcL Normal 0.90-4.32 [facility] ([place]) Comment on above: Performed By: #### C BC, ADIFF, ANEU, HBSAG, TSH, FT4, HIV, PABOGEL, PABSGEL, RUBIS, RPR, VARIS #### [address] [address] Lymphocytes/100 WBC (Bld) 17.3 % Low 20.0-40.0 [facility] ([place]) Comment on above: Performed By: #### C BC, ADIFF, ANEU, HBSAG, TSH, FT4, HIV, PABOGEL, PABSGEL, RUBIS, RPR, VARIS #### [address] [address] Monocyte, Absolute 0.50 10 3/mcL Normal 0.09-1.40 Count includes the [facility] ([place]) Comment on above: Performed By: #### C BC, ADIFF, ANEU, HBSAG, TSH, FT4, HIV, PABOGEL, PABSGEL, RUBIS, RPR, VARIS #### [address] [address] Monocytes/100 WBC (Bld) 6.8 % Normal 2.0-13.0 [facility] ([place]) Comment on above: Performed By: #### C BC, ADIFF, ANEU, HBSAG, TSH, FT4, HIV, PABOGEL, PABSGEL, RUBIS, RPR, VARIS #### [address] [address] Neutrophils/100 WBC (Bld) 75.1 % High 50.0-75.0 [facility] ([place]) Comment on above: Performed By: #### C BC, ADIFF, ANEU, HBSAG, TSH, FT4, HIV, PABOGEL, PABSGEL, RUBIS, RPR, VARIS #### [address] [address] .NEUABSon 10-15-2020 Neutrophil, Absolute 5.40 10 3/mcL Normal 2.25-8.10 [facility] ([place]) Comment on above: Performed By: #### C BC, ADIFF, ANEU, HBSAG, TSH, FT4, HIV, PABOGEL, PABSGEL, RUBIS, RPR, VARIS #### [address] [address] CBCon 10-15-2020 Erythrocyte distribution width (RBC) [Ratio] 12.5 % Normal 11.5-15.5 [facility] ([place]) Comment on above: Performed By: #### C BC, ADIFF, ANEU, HBSAG, TSH, FT4, HIV, PABOGEL, PABSGEL, RUBIS, RPR, VARIS #### [place] [address] Hematocrit (Bld) [Volume fraction] 37.7 % Normal 34.0-46.0 [facility] ([place]) Comment on above: Performed By: #### C BC, ADIFF, ANEU, HBSAG, TSH, FT4, HIV, PABOGEL, PABSGEL, RUBIS, RPR, VARIS #### [place] [id number] Hgb 12.7 G/dL Normal 12.0-16.0 [facility] ([place]) Comment on above: Performed By: #### C BC, ADIFF, ANEU, HBSAG, TSH, FT4, HIV, PABOGEL, PABSGEL, RUBIS, RPR, VARIS #### [place] [id number] MCH (RBC) [Entitic mass] 31.7 pg Normal 27.0-33.0 [facility] ([place]) Comment on above: Performed By: #### C BC, ADIFF, ANEU, HBSAG, TSH, FT4, HIV, PABOGEL, PABSGEL, RUBIS, RPR, VARIS #### [place] [id number] MCHC 33.8 G/dL Normal 32.0-36.0 [facility] ([place]) Comment on above: Performed By: #### C BC, ADIFF, ANEU, HBSAG, TSH, FT4, HIV, PABOGEL, PABSGEL, RUBIS, RPR, VARIS #### [place] [id number] MCV (RBC) [Entitic vol] 93.7 fL Normal 80.0-99.0 [facility] ([place]) Comment on above: Performed By: #### C BC, ADIFF, ANEU, HBSAG, TSH, FT4, HIV, PABOGEL, PABSGEL, RUBIS, RPR, VARIS #### [place] [address] Platelet 214 10 3/mcL Normal 150-450 [facility] ([place]) Comment on above: Performed By: #### C BC, ADIFF, ANEU, HBSAG, TSH, FT4, HIV, PABOGEL, PABSGEL, RUBIS, RPR, VARIS #### [place] [address] Platelet mean volume (Bld) [Entitic vol] 9.5 fL Normal 6.6-10.5 [facility] ([place]) Comment on above: Performed By: #### C BC, ADIFF, ANEU, HBSAG, TSH, FT4, HIV, PABOGEL, PABSGEL, RUBIS, RPR, VARIS #### [place] [id number] RBC 4.02 10 6/mcL Low 4.10-5.30 [facility] ([place]) Comment on above: Performed By: #### C BC, ADIFF, ANEU, HBSAG, TSH, FT4, HIV, PABOGEL, PABSGEL, RUBIS, RPR, VARIS #### [place] [id number] WBC 7.20 10 3/mcL Normal 4.50-10.80 [facility] ([place]) Comment on above: Performed By: #### C BC, ADIFF, ANEU, HBSAG, TSH, FT4, HIV, PABOGEL, PABSGEL, RUBIS, RPR, VARIS #### [place] [address] Vital Signs Date Time Vital Sign Value Performing Clinician Faci lity 05-10-2021 17:10-0400 Body temperature 97.88 [degF] DR DAGOBERTO WATSON DO [facility] 05-10-2021 17:10-0400 Diastolic blood pressure 63 mm[Hg] DR DAGOBERTO WATSON DO [facility] 05-10-2021 17:10-0400 Heart rate 69 /min DR DAGOBERTO WATSON DO [facility] 05-10-2021 17:10-0400 Mean blood pressure 79 mm[Hg] DR DAGOBERTO WATSON DO [facility] 05-10-2021 17:10-0400 Respiratory rate 18 /min DR DAGOBERTO WATSON DO [facility] 05-10-2021 17:10-0400 Systolic blood pressure 110 mm[Hg] DR DAGOBERTO WATSON DO [facility] 05-10-2021 10:47-0400 Body temperature 97.52 [degF] DR DAGOBERTO WATSON DO [facility] 05-10-2021 10:47-0400 Diastolic blood pressure 61 mm[Hg] DR DAGOBERTO WATSON DO [facility] 05-10-2021 10:47-0400 Heart rate 73 /min DR DAGOBERTO WATSON DO [facility] 05-10-2021 10:47-0400 Mean blood pressure 74 mm[Hg] DR DAGOBERTO WATSON DO [facility] 05-10-2021 10:47-0400 Respiratory rate 18 /min DR DAGOBERTO WATSON DO [facility] 05-10-2021 10:47-0400 Systolic blood pressure 101 mm[Hg] DR DAGOBERTO WATSON DO [facility] 05-10-2021 00:39-0400 Body temperature 97.88 [degF] DR DAGOBERTO WATSON DO [facility] 05-10-2021 00:39-0400 Diastolic blood pressure 49 mm[Hg] DR DAGOBERTO WATOSN DO [facility] 05-10-2021 00:39-0400 Heart rate 58 /min DR DAGOBERTO WATSON DO [facility] 05-10-2021 00:39-0400 Mean blood pressure 65 mm[Hg] DR DAGOBERTO WATSON DO [facility] 05-10-2021 00:39-0400 Respiratory rate 18 /min DR DAGOBERTO WATSON DO [facility] 05-10-2021 00:39-0400 Systolic blood pressure 98 mm[Hg] DR DAGOBERTO WATSON DO [facility] 05-09-2021 07:20-0400 Body height [address] DAGOBERTO WATSON DO [facility] 05-09-2021 07:20-0400 Body weight [address] DAGOBERTO WATSON DO [facility] 05-09-2021 07:20-0400 Body weight 22.31 kg/m2 DR DAGOBERTO WATSON DO [facility] Encounters Encounter Date Encounter Type Care Provider Facility Start: 05-15-2021 End: 05-15-2021 Patient encounter procedure LAVERNE MARISCAL [employer] Start: 05-09-2021 End: 05-10-2021 Evaluation and management of inpatient DR DAGOBERTO WATSON DO [facility] Procedures Date Procedure Procedure Detail Performing Clinician None (qualifier value) DR CARCAMO DO Social History Date Type Detail Facility Start: 05-09-2021 Never smoked t obacco (finding) [facility] Sex Assigned At [facility] Hospital Discharge instructions 05-10-2021 Note Date & Type Note Facility 05-10-2021 Hospital Discharg e instructions Patient Education 05/10/2021 08:49:56 Vaginal Delivery, Care After Vaginal Delivery, Care After Refer to this sheet in the next few weeks. These instructions provide you with information about caring for yourself after vaginal delivery. Your health care provider may also give you more specific instructions. Your treatment has been planned according to current medical practices, but problems sometimes occur. Call your health care provider if you have any problems or questions. What can I expect after the procedure? After vaginal delivery, it is common to have: Some bleeding from your vagina. Soreness in your abdomen, your vagina, and the area of skin between your vaginal opening and your anus (perineum). Pelvic cramps. Fatigue. Follow these instructions at home: Medicines Take jpaw-wjm-wjbzyso and prescription medicines only as told by your health care provider. If you were prescribed an antibiotic medicine, take it as told by your health care provider. Do not stop taking the antibiotic until it is finished. Driving Do not drive or operate heavy machinery while taking prescription pain medicine. Do not drive for 24 hours if you received a sedative. Lifestyle Do not drink alcohol. This is especially important if you are or taking medicine to relieve pain. Do not use tobacco products, including cigarettes, chewing tobacco, or e-cigarettes. If you need help quitting, ask your health care provider. Eating and drinking Drink at least 8 eight-ounce glasses of water every day unless you are told not to by your health care provider. If you choose to breastfeed your baby, you may need to drink more water than this. Eat high-fiber foods every day. These foods may help prevent or relieve constipation. High-fiber foods include: ?Whole grain cereals and breads. ?Brown rice. ?Beans. ?Fresh fruits and vegetables. Activity Return to your normal activities as told by your health care provider. Ask your health care provider what activities are safe for you. Rest as much as possible. Try to rest or take a nap when your baby is sleeping. Do not lift anything that is heavier than your baby or 10 lb (4.5 kg) until your health care provider says that it is safe. Talk with your health care provider about when you can engage in sexual activity. This may depend on your: ?Risk of infection. ?Rate of healing. ?Comfort and desire to engage in sexual activity. Vaginal Care If you have an episiotomy or a vaginal tear, check the area every day for signs of infection. Check for: ?More redness, swelling, or pain. ?More fluid or blood. ?Warmth. ?Pus or a bad smell. Do not use tampons or douches until your health care provider says this is safe. Watch for any blood clots that may pass from your vagina. These may look like clumps of dark red, brown, or black discharge. General instructions Keep your perineum clean and dry as told by your health care provider. Wear loose, comfortable clothing. Wipe from front to back when you use the toilet. Ask your health care provider if you can shower or take a bath. If you had an episiotomy or a perineal tear during labor and delivery, your health care provider may tell you not to take baths for a certain length of time. Wear a bra that supports your breasts and fits you well. If possible, have someone help you with household activities and help care for your baby for at least a few days after you leave the hospital. Keep all follow-up visits for you and your baby as told by your health care provider. This is important. Contact a health care provider if: You have: ?Vaginal discharge that has a bad smell. ?Difficulty urinating. ?Pain when urinating. ?A sudden increase or decrease in the frequency of your bowel movements. ?More redness, swelling, or pain around your episiotomy or vaginal tear. ?More fluid or blood coming from your episiotomy or vaginal tear. ?Pus or a bad smell coming from your episiotomy or vaginal tear. ?A fever. ?A rash. ?Little or no interest in activities you used to enjoy. ?Questions about caring for yourself or your baby. Your episiotomy or vaginal tear feels warm to the touch. Your episiotomy or vaginal tear is or does not appear to be healing. Your breasts are painful, hard, or turn red. You feel unusually sad or worried. You feel nauseous or you vomit. You pass large blood clots from your vagina. If you pass a blood clot from your vagina, save it to show to your health care provider. Do not flush blood clots down the toilet without having your health care provider look at them. You urinate more than usual. You are dizzy or light-headed. You have not breastfed at all and you have not had a menstrual period for 12 weeks after delivery. You have stopped and you have not had a menstrual period for 12 weeks after you stopped . Get help right away if: You have: ?Pain that does not go away or does not get better with medicine. ?Chest pain. ?Difficulty breathing. ?Blurred vision or spots in your vision. ?Thoughts about hurting yourself or your baby. You develop pain in your abdomen or in one of your legs. You develop a severe headache. You faint. You bleed from your vagina so much that you fill two sanitary pads in one hour. This information is not intended to replace advice given to you by your health care provider. Make sure you discuss any questions you have with your health care provider. Document Released: 06/26/2001 Document Revised: 12/10/2016 Document Reviewed: 07/13/2016 [employer] Interactive Patient Education 2019 [employer]. Follow Up Care 05/09/2021 06:29:37 With:LAVERNE MARISCAL Address: [address] [phone] When:Within 6 Week(s) Comments:Call office this week to schedule 6 week PP visit [facility] Evaluation + Plan note 05-09-2021 Note Date & Type Note Facility 05-09-2021 Evaluation + Plan note Extrac danuta from: Title:Admission Note/H&P Author:LAVERNE MARISCAL Date:05/09/21 [place] ADMISSION HISTORY A [place] PHYSICIAL CHIEF COMPLAINT: Patient presents for elective induction of labor HISTORY OF PRESENT ILLNESS: Patient is a 31 year old female, G 5 P 4004 at 40w 1d by LMP 08/01/20 and confirmed by 20 week u/s who presents for elective induction of labor. complicated by Gestational Diabetes with excellent glucose control by diet only; history of palpitations; depression/anxiety; History of macrosomia x2 (largest 9#12 with shoulder dystocia) and varicose veins of vulva and bilateral legs. TWG 9#. PREVIOUS OB HISTORY: SVB X4 at H, weight range 7#5 to 9#12 REVIEW OF SYSTEMS: Denies WELLS, LOF, VB, vision changes, chest pain, SOB or leaking any fluid ACTIVE PROBLEMS: (6) ([id number]) Gestational diabetes mellitus, class A>2< ([id number]) None ([id number]) ([id number]) ([id number]) Shoulder dystocia ([id number]) MEDICATIONS: vitamins Randall 3 Trace minerals ASA 81 mg until 36 weeks Active Inpt Meds: None Active PRN Meds: Lactated Ringers Infusion (LR 500 mL Bolus) Start: 05/09/21 7:19:00 EDT, Dose = 500 mL, Soln, IV Bolus, AsDirected, PRN, Other (see order comments), Rate: 125 mL/hr, hour(s) carboprost (Hemabate) Start: 05/09/21 7:19:00 EDT, Dose = 250 mcg, = 1 mL, Intramuscular, Once, PRN, Other (see order comments) citric acid-sodium citrate (Bicitra) Start: 05/09/21 7:19:00 EDT, Dose = 30 mL, Soln, Oral, AsDirected, PRN, Gastric Upset lidocaine (Xylocaine HCl 1% injectable solution) Start: 05/09/21 7:19:00 EDT, Dose = 20 mg, = 2 mL, Perineum, AsDirected, PRN, to perineal sutures, 1 dose(s), Stop: Limited # of times methylergonovine (Methergine) Start: 05/09/21 7:19:00 EDT, Dose = 0.2 mg, = 1 mL, Intramuscular, Once, PRN, Other (see order comments) miSOPROStol (Cytotec) Start: 05/09/21 7:19:00 EDT, Dose = 1,000 mcg, = 5 tab(s), Rectal, Once, PRN, Other (see order comments), 0 ondansetron (Zofran) Start: 05/09/21 7:19:00 EDT, Dose = 4 mg, = 2 mL, IV Push, q4h, PRN, Nausea oxytocin (Pitocin) Start: 05/09/21 7:19:00 EDT, Dose = 20 unit(s), = 2 mL, Intramuscular, Once, PRN, Other (see order comments) terbutaline (Brethine) Start: 05/09/21 7:19:00 EDT, Dose = 0.25 mg, = 0.25 mL, Subcutaneous, AsDirected, PRN, Other (see order comments) terbutaline (Brethine) Start: 05/09/21 8:01:00 EDT, Dose = 0.25 mg, = 0.25 mL, Subcutaneous, AsDirected, PRN, Control symptoms, directed by physician for episode of tachysystole resulting in prolonged bradycardia (lasting greater than 3 minutes) and/or late deceleration One Time Meds: None Active IV Meds: Lactated Ringers Infusion 1,000 mL (LR 1,000 mL) Start: 05/09/21 7:19:00 EDT, Rate: 125 mL/hr oxytocin 20 unit(s) + Lactated Ringers Infusion 1,000 mL (Oxytocin for IV (mL/hr) 20 unit(s) + LR 1,000 mL) Start: 05/09/21 7:19:00 EDT, Rate: 999 mL/hr oxytocin 20 unit(s) [2 munit/min] + Lactated Ringers Infusion 1000 mL (Oxytocin for IV (munit/min) 20 unit(s) [2 munit/min] + Lactated Ringers Infusion 1000 mL) Start: 05/09/21 8:01:00 EDT, Start at 2 milliunits/minute Piggyback at closest IV port via infusion pump. Increase rate 1 milliunits every 30 minutes until contractions are no closer than every 2 minutes. Do not exceed 30 milliunits/minute, Rate: 6 m... ALLERGIES: (1) neomycin topical FAMILY HISTORY: mother-MS, migraines father- CVD brother-MVP and anxiety SOCIAL HISTORY: . lives with and children PHYSICAL EXAM: VITALS: [id number](kg) 05/09 07:3337.0107/[id number]----90/28 55.0 24 Hr Tmax: 37.0 at 05/09 07:33 36 Hr Tmax: 37.0 at 05/09 07:33 Vital Signs are the last 5 in the past 48 hours. Weights display the last 5 within 7 days. Initial Wt: 05/09 55.0 kg 121 lb Current Wt: 05/09 55.0 kg 121 lb GENERAL: WDWN female in no acute distress HEENT: normocephalic CARDIOVASCULAR: RRR without murmur RESPIRATORY: CTA ABDOMEN: Gravid; soft between contractions EXREMETIES: bilateral varicosities NEUROLOGICAL: intact PSYCHIATRIC: appropriate Cervix: 3/80/-2 with vertex fairly well applied to cervix FHTS Category 1 tracing LABS: A POS, ABS-NEG, RUBELLA & VARICELLA-POS; HIV & HBSAG-NEG; THYROID-NORMAL; EARLY GLUCOLA- 144 (3 HR GTT NORMAL);REPEAT 3 HR GTT AT 30 WEEKS ABNORMAL; GBS-NEG ON 04/10/21 36hr Labs 05/09 0720 WBC5.00 RBC3.48L Hgb11.9L Hct34.5L MCV99.0H MCH34.3H MCHC34.6 RDW13.1 [id number] MPV9.5 Neutrophil %70.8 Lymphocyte %19.4 Monocyte %8.9 Eosinophil %0.5 Basophil %0.4 Lymphocyte, Absolute1.00 Monocyte, Absolute0.50 Eosinophil, Absolute0.00 Basophil, Absolute0.00 Neutrophil, Absolute3.60 IMPRESSION: Intrauterine at term Category 1 FHR tracing Gestational diabetes History of macrosomia x2 History of shoulder dystocia x1 Palpitations Depression/anxiety Bilateral LE varicose veins Vulvar varicosities PLAN: Admit Pitocin induction Anticipate SVB Expectant management Dr. Watson aware of patient status and plan of care [facility] Hospital course Narrative Note Date & Type Note Facility Hospital course Narrative No data available for this section [facility] Hospital Discharge instructions Note Date & Type Note Facility Hospital Discharge instructions No data available for this section [facility] Summary Purpose Family History No Family History Records Found Advance Directives No Advanced Directives Records Found Additional Source Comments INFORMATION SOURCE (unrecogn ized section and content) DATE CREATED AUTHOR 08/06/2021 [facility] ([place]) FOR RECORDS PERTAINING TO PATIENTS WHO ARE OR HAVE BEEN ENROLLED IN A CHEMICAL DEPENDENCY/SUBSTANCEABUSE PROGRAM, SOME INFORMATION MAY BE OMITTED. This clinical summary was aggregated from multiple sources. Caution should be exercised in using it in the provision of clinical care. This summary normalizes information from multiple sources, and as a consequence, information in this document may materially change the coding, format and clinical context of patient data. In addition, data may be omitted in some cases. CLINICAL DECISIONS SHOULD BE BASED ON THE PRIMARY CLINICAL RECORDS. [facility] provides no warranty or guarantee of the accuracy or completeness of information in this document.
[2025-01-30 05:32] LABS: AST(SGOT) 25 U/L (<=31); Alanine Aminotransfer ALT/SGPT 16 U/L (<=34); Albumin, Serum 4.3 g/dL (3.5-5.0); Alkaline Phosphatase 46 U/L (35-104); Anion Gap 11 (5-15); BUN 17 mg/dL (4-19); BUN/Creat Ratio 27.9 RATIO (10-20); Calcium,Total 9.2 mg/dL (7.6-11.0); Carbon Dioxide 26.7 mmol/L (21.0-32.0); Chloride 102 mmol/L (98-108); Estimated Creatinine Clearance 109.31 ml/min (50-250); Globulin 2.7 g/dL (2.2-4.2); Glucose 154 mg/dL (70-99); Lipase 35 U/L (13-75); Potassium 3.5 mmol/L (3.3-5.1)
--- NOTE | 2025-01-30 05:37 | CT_ITS ---
PROCEDURE: ABDOMEN/PELVIS W IV CONT ONLY 01/30/2025 REASON FOR EXAM: UPPER ABD PAIN, HYPERBILIRUBINEMIA TECHNIQUE: ABDOMEN/PELVIS W IV CONT ONLY Coronal and Sagittal reconstruction series were provided. CONTRAST: 96 cc Isovue 370 One or more dose reduction techniques were used (e.g., Automated exposure control, adjustment of the mA and/or kV according to patient size, use of iterative reconstruction technique. RADIATION DOSE SUMMARY: DLP: 352 mGycm COMPARISON: None FINDINGS: Lung bases: Clear Liver: Decreased density in the periportal region is noted, which can indicate periportal edema. Gallbladder: Unremarkable Spleen: Unremarkable Pancreas: Unremarkable Adrenals: Unremarkable Kidneys: Unremarkable Bladder: Unremarkable Reproductive Organs: Unremarkable Bowel: There is a moderate stool load. Small bowel loops are not distended. Appendix: Normal in appearance Lymph nodes: There is no pathologic adenopathy by size criteria. Vasculature: Unremarkable Peritoneum / Retroperitoneum: There is no free air or free fluid. Bones: No acute bony abnormality is identified. CT/Abdomen/Pelvis W IV Cont ONLY IMPRESSION: Decreased density in the periportal region is noted, which can indicate peripor abdi edema. The differential includes acute hepatitis, CHF, and secondary congestion. Reading Location: [facility]
[2025-01-30 06:00] VITALS: BP 109/59; PULSE 74; RESP 18; O2SAT 100
--- NOTE | 2025-01-30 07:09 | US_ITS ---
PROCEDURE: ABDOMEN LIMITED 01/30/2025 REASON FOR EXAM: UPPER ABD PAIN, ELEVATED BILIRUBIN TECHNIQUE: ABDOMEN LIMITED COMPARISON: None FINDINGS: Liver: Liver measures 14.5 cm. Size contour and echogenicity are within normal limits. No intrahepatic masses or intrahepatic biliary ductal dilatation is seen. Portal vein demonstrates hepatopetal flow. Gallbladder: Gallbladder measures 8.2 cm. There is some sludge identified along the dependent portion of the gallbladder. Gallbladder wall is not thick measuring 2 mm. There is no pericholecystic fluid. Common bile duct: 3 mm . Pancreas: Pancreas size contour and echogenicity are within normal limits. No pancreatic masses are seen. Pancreatic duct is not dilated. Kidneys: The right kidney measures 11.4 x 5.6 x 4.0 cm cortical thickness measures 11 mm. Size contour and echogenicity are within normal limits. There are no stones, masses or hydronephrosis.. Peritoneal Findings: There is no ascites. US/Abdomen Limited IMPRESSION: There is some sludge identified in the dependent portion of the gallbladder, ot herwise unremarkable right upper quadrant abdominal ultrasound examination. Reading Location: [id number]
[2025-01-30 08:00] VITALS: BP 108/76; PULSE 89; RESP 18; O2SAT 98
[2025-01-30 10:00] VITALS: BP 102/59; PULSE 77; RESP 16; TEMP 36.7; O2SAT 97
[2025-01-30 10:33] VITALS: BP 107/47; PULSE 79; RESP 15; TEMP 36.9; O2SAT 97
[2025-01-30 11:32] LABS: Bilirubin, Direct 0.46 mg/dL (0.00-0.30)
== END 2025-01-30 10:55 | disposition home or self-care (01) ==
PROVIDERS: Emergency Medicine; Emergency Provider Emergency Medicine; Visit Provider Emergency Medicine
DX: R10.10 Upper abdominal pain, unspecified (principal)
CPT/HCPCS: 74177; 76705; 80053; 81001; 82248; 83690; 84703; 85025; 99285; Q9967; A4216